=== PATIENT | female | born 1990 | race Caucasian/White ===

== ENCOUNTER 2018-09-22 08:33 | Emergency (ER) | payer OTHER ==
[~2018-09-22] VITALS: Ht 157.5 cm; Wt 72.2 kg
[2018-09-22 08:44] VITALS: BP 126/65; PULSE 108; RESP 18; Ht 157.5 cm; Wt 72.2 kg
[2018-09-22] MEDS ORDERED: ACETAMINOPHEN 500 MG TAB PO STA (09:12)
[2018-09-22] MEDS ORDERED: KETOROLAC 60 MG INJ IM STA (09:12)
[2018-09-22] MEDS ORDERED: DEXAMETHASONE 10 MG/ML 1 ML INJ IM ONE (09:30)
[2018-09-22] MEDS ORDERED: PENICILLIN G BENZ 1.2 MIL UNIT SYG IM ONE (10:00)
[2018-09-22] MEDS ORDERED: LIDO20SO19 MM (10:08)
[2018-09-22] MEDS ORDERED: BENZ-6 PO (10:08)
[2018-09-22] MEDS ORDERED: CETI10TA19 PO (10:08)
--- NOTE | 2018-09-22 10:46 | ERD ---
ER Documentation Chief Complaint Chief Complaint throat pain with "white spots" x 4 days HPI History of Present Illness: 27-year-old female who denies a past medical history coming in today with complaint of sore throat and white spots in her throat. Patient reports throat pain is been present for 4 days with fever, unknown T- max. Patient reports noticing white spots in the back of her throat yesterday. Patient was diagnosed with a throat infection on 08/24 by her primary care doctor and was given Levaquin for 7 days. Patient reports she thought that her symptoms were related to a common cold until the white spots developed in her throat yesterday. At home pharmacological/nonpharmacological treatment for symptoms: DayQuil/NyQuil Denies social concerns; Denies recent foreign travel ROS All systems reviewed and are negative except as per history of present illness. Medications Home Meds Active Scripts Cetirizine Hcl* (Cetirizine Hcl*) 10 Mg Tablet, 10 MG PO DAILY for allergies/cough/runny nose, #30 TAB Prov:NICOLE PATEL NP 09/22/18 Lidocaine (Lidocaine Viscous) 100 Ml Soln, 5 ML MM Q4 PRN for throat pain, #100 May mix with 2.5 mL of water. Gargle solution for 10-15 seconds. May spit or swallow. Prov:NICOLE PATEL NP 09/22/18 Benzonatate* (Tessalon Perle*) 100 Mg Capsule, 100 MG PO Q8H PRN for COUGH, #15 CAP Prov:NICOLE PATEL NP 09/22/18 Allergies Allergies: Coded Allergies: No Known Allergy (Unverified , 09/22/18) PMhx/Soc Medical and Surgical Hx: pt denies Medical Hx, pt denies Surgical Hx Hx Alcohol Use: No Hx Substance Use: No Hx Tobacco Use: No FmHx Family History: No diabetes, No coronary disease Physical Exam Vitals Vital Signs Date Temp Pulse Resp B/P (MAP) Pulse Ox O2 O2 Flow FiO2 Time Delivery Rate 09/22/18 99.9 09:36 09/22/18 99.9 108 18 126/65 99 08:44 (85) Physical Exam Const: No acute distress, afebrile HEENT: Atraumatic. Conjunctivae are pink. Pupils equal, round, and reactive to light. There is no scleral icterus. No erythema to tympanic membranes, no bulging, no perforation. Oropharynx erythematous with tonsillar exudate, 3+ tonsils, uvula midline. Neck: Full range of motion. No meningismus. Resp: Clear to auscultation bilaterally Cardio: Regular rate and rhythm, no murmurs Abd: Soft, non tender, non distended. No guarding, no masses, no rigidity Skin: No petechiae or rashes Back: No midline or flank tenderness Ext: No cyanosis, or edema Neur: Awake and alert x3, speaking in clear sentences, no focal deficits or facial asymmetry Psych: Normal Mood and Affect Results 24 hrs Laboratory Tests Test 09/22/18 09:29 POC Beta HCG, Qualitative NEGATIVE Current Medications Medications Dose Sig/Malini Start Time Status Last (Trade) Ordered Route PRN Stop Time Admin Dose Reason Admin 10 mg ONCE ONCE 09/22/18 DC 09/22/18 Dexamethasone IM 09:30 09:36 (Decadron) 09/22/18 09:31 1,000 mg ONCE STAT 09/22/18 DC 09/22/18 Acetaminophen PO 09:12 09:36 (Tylenol 09/22/18 09:14 Tab) Ketorolac 60 mg ONCE STAT 09/22/18 DC 09/22/18 Tromethamine IM 09:12 09:36 (Toradol) 09/22/18 09:14 Penicillin 1,200,000 ONCE ONCE 09/22/18 DC G units IM 10:00 Benzathine 09/22/18 10:03 (Bicillin La) Procedures/MDM ED course includes a thorough examination and history. Medications: Dexamethasone, ketorolac, acetaminophen Imaging: Rapid strep, Monospot Labs: Low suspicion for life-threatening medical emergency. Low suspicion for HEENT medical emergency requires hospitalization or immediate surgical intervention. Low suspicion for infectious emergency that requires hospitalization or IV antibiotics. Low suspicion for airway compromise. Low suspicion for peritonsillar abscess. Otherwise healthy patient presenting with constellation of symptoms likely representing recurrent strep pharyngitis as characterized by history, physical exam findings, lab findings. Rapid strep positive. Monospot negative. Patient reassessment 1030: Patient hemodynamically stable. Patient with decreased pain after medication administration. Patient no longer febrile. Patient verbalizes understanding of plan of care and discharge instructions. No respiratory distress, otherwise relatively well appearing and nontoxic. Disposition given. Patient educated on diagnoses, prescriptions, follow-up care, return precautions. Strict return precautions given for worsening condition; questions answered discharge. Disposition for discharge with followup in 2 days with PCP/clinic. Departure Diagnosis: Primary Impression: Strep pharyngitis Condition: Stable Patient Instructions: Strep Throat Referrals: [facility] YOU HAVE RECEIVED A MEDICAL SCREENING EXAM AND THE RESULTS INDICATE THAT YOU DO NOT HAVE A CONDITION THAT REQUIRES URGENT TREATMENT IN THE EMERGENCY DEPARTMENT. FURTHER EVALUATION AND TREATMENT OF YOUR CONDITION CAN WAIT UNTIL YOU ARE SEEN IN YOUR DOCTORS OFFICE WITHIN THE NEXT 1-2 DAYS. IT IS YOUR RESPONSIBILITY TO MAKE AN APPOINTMENT FOR FOLOW-UP CARE. IF YOU HAVE A PRIMARY DOCTOR --you should call your primary doctor and schedule an appointment IF YOU DO NOT HAVE A PRIMARY DOCTOR YOU CAN CALL OUR PHYSICIAN REFERRAL HOTLINE AT IF YOU CAN NOT AFFORD TO SEE A PHYSICIAN YOU CAN CHOSE FROM THE FOLLOWING [facility] [address] [facility] [address] [facility] [address] [facility] [address] [facility] [address] [facility] [facility] [address] [facility] [address] [facility] YOU HAVE RECEIVED A MEDICAL SCREENING EXAM AND THE RESULTS INDICATE THAT YOU DO NOT HAVE A CONDITION THAT REQUIRES URGENT TREATMENT IN THE EMERGENCY DEPARTMENT. FURTHER EVALUATION AND TREATMENT OF YOUR CONDITION CAN WAIT UNTIL YOU ARE SEEN IN YOUR DOCTORS OFFICE WITHIN THE NEXT 1-2 DAYS. IT IS YOUR RESPONSIBILITY TO MAKE AN APPOINTMENT FOR FOLOW-UP CARE. IF YOU HAVE A PRIMARY DOCTOR --you should call your primary doctor and schedule and appointment IF YOU DO NOT HAVE A PRIMARY DOCTOR YOU CAN CALL OUR PHYSICIAN REFERRAL HOTLINE AT . IF YOU CAN NOT AFFORD TO SEE A PHYSICIAN YOU CAN CHOSE FROM THE FOLLOWING [facility] INSTITUTIONS: [facility] [address] [place] [address] [facility] [address] [place] [address] [facility] [address] [place] [address] Additional Instructions: Thank you very much for allowing us to participate in your care. Your health and safety is our top priority at [facility]. It is important to read all discharge instructions and education provided in your discharge packet. Call your primary care doctor TOMORROW for an appointment during the next 2-4 days and bring all the information and medications prescribed. Have prescriptions filled and follow precisely the directions on the label. --Benzonatate is a medication that will help with cough suppression. This medication will not make you drowsy. -Cetirizine as an antihistamine that should not cause drowsiness; take this medication every day for allergy-like symptoms/cough/runny nose. -Viscous lidocaine is a numbing agent, and this will help with throat pain. Follow directions as prescribed. If the symptoms get worse and your provider is unavailable, return to the Emergency Department immediately. NICOLE PATEL NP September 22, 2018 10:46
== END 2018-09-22 11:04 | disposition home or self-care (01) ==
LOC: FTE 08:33
DX: J02.0 Streptococcal pharyngitis (principal)
CPT/HCPCS: 81025; 86308; 87880; 96372; J0561; J1100; J1885; Z7502; Z7610